=== PATIENT | female | born 1950 | race Caucasian/White ===

== ENCOUNTER 2022-02-23 07:23 | Observation (INO) | payer MEDICARE ==
[2022-02-21 15:39] LABS: BASOPHILS % (AUTO) 0.4 % (0.0-5.0); EOSINOPHILS % (AUTO) 1.1 % (0.0-8.0); HEMATOCRIT 34.5 % (36-48); LYMPHOCYTES % (AUTO) 36.8 % (21.0-51.0); MEAN CORPUSCULAR HEMOGLOBIN 31.6 pg (27.0-33.0); MEAN CORPUSCULAR HGB CONC 33.6 g/dL (32.0-36.0); MONOCYTES % (AUTO) 10.8 % (3.0-13.0); NEUTROPHILS % (AUTO) 50.7 % (40.0-77.0); PLATELET COUNT (AUTO) 167 K/uL (130-400); RED BLOOD CELL COUNT(AUTO) 3.67 MIL/uL (4.00-5.50); RED CELL DISTRIBUTION WIDTH 14.8 % (11.0-15.5); WHITE BLOOD COUNT (AUTO) 4.5 K/uL (4.8-10.8)
[2022-02-21 15:50] LABS: INR 0.94 (0.85-1.15); PROTHROMBIN TIME 10.3 SEC (9.6-11.6)
[2022-02-21 15:51] LABS: PARTIAL THROMBOPLASTIN TIME 24.8 SEC (26.3-35.5)
[2022-02-21 15:57] LABS: CREATININE 0.5 mg/dL (0.5-1.5); POTASSIUM 3.9 mmol/L (3.5-5.1)
[2022-02-21 16:12] LABS: B-TYPE NATRIURETIC PEPTIDE 135 pg/mL (0-100)
[2022-02-22 12:58] VITALS: BP 119/58
[2022-02-23] VITALS (23 sets, daily range): BP systolic 64–150; BP diastolic 40–80
[~2022-02-23] VITALS: Ht 157.5 cm; Wt 63.7 kg
[~2022-02-23 07:23] MED LIST: 0.9% NACL 500ML IV.SOLN 500 ML IV SCH; AMLO-257 PO; BACL10TA PO; FAMO20TA8 PO; FLUT1BLS3 IH; HYDR12.54 PO; LABE200T7 PO; OLME40TA18 PO
[2022-02-23 07:54] LABS: APPEARANCE,URINE CLEAR (CLEAR); BILIRUBIN,URINE NEGATIVE (NEGATIVE); COLOR,URINE YELLOW (YELLOW); GLUCOSE, URINE (UA) NEGATIVE (NEGATIVE); KETONES,URINE NEGATIVE (NEGATIVE); LEUKOCYTE ESTERASE ,URINE NEGATIVE Leu/uL (NEGATIVE); NITRATE,URINE NEGATIVE (NEGATIVE); OCCULT BLOOD,URINE NEGATIVE (NEGATIVE); PROTEIN,URINE NEGATIVE (NEGATIVE); UROBILINOGEN,URINE 0.2 mg/dL (0.2-1.0)
[2022-02-23] MEDS ORDERED: HEPARIN 10,000 UNIT/10ML (1,000 UNIT/ML) VIAL ONE (11:28)
[2022-02-23] MEDS ORDERED: NITROGLYCERIN 50MG VIAL ONE (11:28)
[2022-02-23] MEDS ORDERED: MIDAZOLAM HCL 1 MG/ML 2ML VIAL ONE (11:28)
[2022-02-23] MEDS ORDERED: IOHEXOL-350 50ML VIAL IV ONE (11:28)
[2022-02-23] MEDS ORDERED: BIVALIRUDIN 250 MG/VIAL IV ONE (11:28)
[2022-02-23] MEDS ORDERED: IOHEXOL 350 MG/ML 100ML INFUS..BTL IV ONE ×2 (11:28→14:15)
[2022-02-23] MEDS ORDERED: FENTANYL CITRATE PF 50 MCG/1 ML 2ML VIAL ONE ×2 (11:28→14:07)
[2022-02-23] MEDS ORDERED: LIDOCAINE HCL 400MG/20ML VIAL ONE (11:29)
[2022-02-23] MEDS ORDERED: ASPIRIN 81MG CHEW TAB ONE (13:05)
[2022-02-23] MEDS ORDERED: CLOPIDOGREL 300MG TAB ONE (13:06)
[2022-02-23] MEDS ORDERED: LABETALOL 20MG VIAL IV ONE (13:46)
[2022-02-23] MEDS ORDERED: MAG/ALUM/SIMETH 30 ML UDCUP PO ONE (14:00)
[2022-02-23] MEDS ORDERED: 0.9%NACL 1000ML 1,000 ML IV SCH (15:30)
[2022-02-23] MEDS ORDERED: 0.9% NACL 250ML 250 ML IV ONE (20:00)
[2022-02-23 20:16] LABS: HEMATOCRIT 25.3 % (36-48); MEAN CORPUSCULAR HEMOGLOBIN 31.5 pg (27.0-33.0); MEAN CORPUSCULAR HGB CONC 33.6 g/dL (32.0-36.0); MEAN CORPUSCULAR VOLUME 93.7 fL (79-99); RED BLOOD CELL COUNT(AUTO) 2.7 MIL/uL (4.00-5.50); RED CELL DISTRIBUTION WIDTH 15.1 % (11.0-15.5); WHITE BLOOD COUNT (AUTO) 6.5 K/uL (4.8-10.8)
[2022-02-23] MEDS ORDERED: ZOLPIDEM TARTRATE 5 MG TAB PO PRN (23:00)
[2022-02-23 23:33] LABS: HEMATOCRIT 24.8 % (36-48)
[2022-02-24] VITALS (36 sets, daily range): BP systolic 86–146; BP diastolic 39–80
[2022-02-24] MEDS ORDERED: BACLOFEN 10 MG TABLET PO PRN
[2022-02-24 03:54] LABS: HEMATOCRIT 24.2 % (36-48)
[2022-02-24 04:08] LABS: CREATININE 0.5 mg/dL (0.5-1.5)
[2022-02-24] MEDS ORDERED: KCL 20 MEQ ERTAB PO SCH (08:00)
[2022-02-24] MEDS ORDERED: SENNOSIDES 8.6 MG TABLET PO PRN (08:30)
[2022-02-24] MEDS ORDERED: DOCUSATE SODIUM 100 MG CAP PO PRN (08:30)
[2022-02-24] MEDS ORDERED: CLOPIDOGREL 75MG TAB PO SCH (09:00)
[2022-02-24] MEDS ORDERED: FAMOTIDINE 20MG TAB PO SCH (09:00)
[2022-02-24] MEDS ORDERED: ASPIRIN 81 MG EC TAB PO SCH (09:00)
[2022-02-24] MEDS ORDERED: AMLODIPINE 5 MG TAB PO SCH (09:00)
[2022-02-24] MEDS ORDERED: UMECLIDIN IH SCH (09:00)
[2022-02-24] MEDS ORDERED: LABETALOL HCL 200 MG TABLET PO SCH (09:00)
[2022-02-24] MEDS ORDERED: HYDROCHLOROTHIAZIDE 25 MG TABLET PO SCH (09:00)
[2022-02-24] MEDS ORDERED: VILANTER IH SCH (09:00)
[2022-02-24] MEDS ORDERED: FLUTICASONE IH SCH (09:00)
== END 2022-02-24 16:00 | disposition home or self-care (01) ==
LOC: DAH 07:23 → DAHIP 07:24 → DAH 07:24 → 2DH 18:30 → 2CH 21:29
PROVIDERS: ADMIT Internal Medicine Cardiovascular Disease; ATTEND Internal Medicine Cardiovascular Disease
DX: I35.0 Nonrheumatic aortic (valve) stenosis (principal); I25.119 Atherosclerotic heart disease of native coronary artery with unspecified angina pectoris; D62 Acute posthemorrhagic anemia; I11.0 Hypertensive heart disease with heart failure; I50.32 Chronic diastolic (congestive) heart failure; D50.9 Iron deficiency anemia, unspecified; J45.909 Unspecified asthma, uncomplicated; K66.1 Hemoperitoneum; Z98.84 Bariatric surgery status; Z79.899 Other long term (current) drug therapy; Z87.891 Personal history of nicotine dependence
CPT/HCPCS: 80048 ×2; 83880; 85025; 85610; 85730; 36415 ×3; 71045 ×2; 93005 ×2; 93460; 85027; 85014 ×2; 85018 ×2; 86850; 86900; 86901; 82948; 81003; 74176; 76705; 76882; C1769 ×4; C1887 ×3; C1894 ×2; C1760; C1893; C1874 ×2; C1725; Q9965 ×2; G0378 ×25; J7040; J3010 ×2; J3490 ×3; J7030 ×2; J2250; J1644; J0583; Q9967 ×2; A4215; A4223 ×3; A4222; A4221; A4663; A4216; A4606; C9600 ×2; 99156; 99157